=== PATIENT | male | born 1950 | race Caucasian/White ===

== ENCOUNTER → 2016-08-14 | Outpatient (CLI) | payer MEDICARE ==
[~2016-08-14] MED LIST: ACET-2047 PO; ALBU8.5H5 IH; ASC500 PO; ASPI81TA3 PO; CHOL200035 PO; DIVA500T7 PO; DOCU-144 PO; FINA5TAB PO; GEMF600T PO; LEVEM SC; LEVO50TA83 PO; NOV SC; QUET100T PO; RISP3TAB25 PO; ROSU20TA PO; SENN-36 PO; SODI1GRA MC; TEMA15CA6 PO; ZINC220C10 PO
--- NOTE | 2016-08-14 16:35 | RADRPT ---
Echocardiogram Report Patient Name: TUSHAR DENNIS Gender: Male Date: 1950 Study Date: 14-Aug-2016 Academic Coach: Denise Zhong RDCS Location: EKG Ref. Physician: AMANDA STEWART Quality: Technically Difficult Study Procedures: Transthoracic echocardiogram with complete 2D, M-Mode, and doppler examination. Indications: Edema. 2D/M Mode Doppler Measurement Value Normal Ranges Measurement Value Normal Ranges LVIDd 2D 3.9 3.5 - 5.6 cm AV Peak Mohit 1.1 m/sec LVIDs 2D 2.4 2.1 - 4.1 cm AV Peak PG 4.0 mmHg FS 2D 38.6 % LVOT Peak Mohit 0.6 m/sec LVPWd 2D 0.9 0.6 - 1.1 cm LVOT Peak PG 1.0 mmHg IVSd 2D 1.0 0.6 - 1.1 cm MV E Peak Mohit 0.4 m/sec IVS/LVPW 2D 1.2 MV A Peak Mohit 0.7 m/sec AoR Diam 2D 3.2 2.0 - 3.7 cm MV E/A 0.7 LA/Ao 2D 1 0 - 1 MV Decel Time 148 msec EDV 2D 61.2 cm3 MV E/A 0.7 ESV 2D 14.2 cm3 LA Dimen 2D 3.1 2.3 - 4.0 cm Findings Left Ventricle: Lower limits of normal systolic function. Normal left ventricular cavity size. Mild concentric left ventricular hypertrophy. Ejection fraction is visually estimated at 50 %. Tissue Doppler/Mitral Doppler indices are consistent with impaired relaxation (Stage I diastolic dysfunction). Right Ventricle: Not well visualized. Left Atrium: The left atrium is normal in size. Right Atrium: Not well visualized. Mitral Valve: Normal appearance and function of the mitral valve with trace physiologic regurgitation. Aortic Valve: No significant aortic stenosis or insufficiency. Aortic valve not well visualized. Tricuspid Valve: Tricuspid valve not well visualized. Unable to obtain RVSP due to minimal presence of tricuspid regurgitation. Pulmonic Valve: Pulmonic valve not well visualized. Pericardium: Not well visualized. Aorta: Normal aortic root. IVC: Dilated inferior vena cava with poor inspiratory collapse consistent with elevated right atrial pressures. Conclusions 1.Technically difficult echo with limited views. 2.Lower limits of normal systolic function. Normal left ventricular cavity size. Mild concentric left ventricular hypertrophy. Ejection fraction is visually estimated at 50 %. Tissue Doppler/Mitral Doppler indices are consistent with impaired relaxation (Stage I diastolic dysfunction). 3.Normal appearance and function of the mitral valve with trace physiologic regurgitation. 4.Tricuspid valve not well visualized. Unable to obtain RVSP due to minimal presence of tricuspid regurgitation. Electronically Signed By: Amanda Stewart 14-Aug-2016 16:34:27 -0800 Patient Name: TUSHAR DENNIS Study Date: 14-Aug-[id number]
== END | disposition home or self-care (01) ==
LOC: EKG 11:06
PROVIDERS: ATTEND Internal Medicine
DX: I34.0 Nonrheumatic mitral (valve) insufficiency (principal); I07.1 Rheumatic tricuspid insufficiency
CPT/HCPCS: 93306